=== PATIENT | female | born 1945 | race African-American/Black ===

== ENCOUNTER 2021-10-16 00:32 | Emergency (ER) | payer MEDICARE, BC ==
[~2021-10-16] VITALS: Ht 165.1 cm; Wt 70.0 kg
[~2021-10-16 00:32] MED LIST: AMOXICILLIN875 MG OR; FISH OIL1000 MG PO; FLONASE NASAL50 MCG; MULTIVITAM10 OR; VITAMIN B-1100 M1 PO; VITAMIN D1000 UNI1 OR
[2021-10-16 00:42] VITALS: BP 165/73
[2021-10-16 00:47] VITALS: BP 165/73
[2021-10-16 01:00] VITALS: BP 133/67
== END 2021-10-16 01:16 | disposition home or self-care (01) ==
LOC: ED 00:32
PROC: 0HQMXZZ Repair Right Foot Skin, External Approach (ICD-10-PCS; principal; 2021-10-16)
DX: I83.891 Varicose veins of right lower extremity with other complications (principal); I10 Essential (primary) hypertension